=== PATIENT | female | born 1995 | race Caucasian/White ===

== ENCOUNTER 2023-12-24 15:45 | Inpatient (IN) ==
[2023-12-24] MEDS ORDERED: LIDOCAINE 1% LOCAL 20 ML VIAL INFIL PRN (16:10)
--- NOTE | 2023-12-24 16:13 | History & Physical Report ---
Date of Service December 24, 2023 Assessment & Plan (1) Supervision of normal intrauterine in multigravida: Plan: Admit to L&D. EFM/labs/IV access. Desires epidural. Anticipate . History of Present Illness Chief Complaint: labor Primary Care Provider: Todd Morales 28yo @ 39 08/18, came to L&D with regular contractions since 11am today. No rupture of membranes, no bleeding. + movement. Known GBS + Allergies Allergy/AdvReac Type Severity Reaction Status Date / Time No Known Allergies Allergy Verified 12/19/23 09:49 Home Medications Medication Instructions Recorded Confirmed Type vitamins-iron fumarate 27 1 tab PO DAILY 06/05/18 12/24/23 History mg iron-folic acid 0.8 mg tablet ( Vitamin) Patient History Medical History PROM (premature rupture of membranes) Surgical History H/O breast augmentation [place] teeth removed S/P tonsillectomy and adenoidectomy Family History (Updated 05/10/23 @ 10:52 by Grace Mccoy) Grandfather Hypertension Grandmother Endometrial cancer Social History (Updated 05/10/23 @ 10:53 by Grace Mccoy) Smoking Status: Never smoker Do You Dip or Chew Tobacco: No; Hx Alcohol Use: No Hx Substance Use: No Preferred Language: Gu[place]an Communication Ability: Effective Beliefs That Will Affect Care: None marital status: Single marital status details: Yayo (27) [phone] Current Living Situation: Significant Other Current Living Situation Comment: lives with FOB and daughter, 2 dogs current occupational status: employed current occupation: Realestate agent. Feels Safe at Home: Yes Assistive Devices: None Review of Systems All systems reviewed & are unremarkable except as noted in HPI & below Physical Exam Physical Exam: FHT Cat 1 Bloomer Q 2 SVE 7/100/-1, cephalic Constitutional: WD/WN, vitals as above Respiratory: normal respiratory effort, lungs clear to auscultation no respiratory distress Cardiovascular: Rate/Rhythm: regular rate and regular rhythm Gastrointestinal (Abdomen): Inspection/Auscultation: abdomen normal to inspection Percussion/Palpation: abdomen soft; abdomen nontender Gravid. No s/s chorio or abruption. Skin: no rashes, warm and dry Psychiatric: A+Ox3, euthymic affect Results & Data Vital Signs (Past 12 Hours) Vital Signs Pulse BP 12/24/23 15:54 99 H 121/72 Coding Level of Care Code None Diagnoses Supervision of normal intrauterine in multigravida Z34.80
[2023-12-24] MEDS: LACTATED RINGER'S 1,000 ML IV PRN (16:23)
[2023-12-24] MEDS ORDERED: ONDANSETRON INJ 2 MG/ML 2 ML VIAL IV PRN (16:28)
[2023-12-24] MEDS ORDERED: ePHEDrine sulfate 50 MG/ML AMP IV PRN (16:28)
[2023-12-24] MEDS ORDERED: BUPIVACAINE 0.25% PF 30 ML VIAL EPI PRN (16:28)
[2023-12-24] MEDS ORDERED: NALOXONE HCL 0.4 MG/1 ML VIAL/CARP IV PRN (16:28)
[2023-12-24] MEDS ORDERED: LIDOCAINE 2% MPF LOCAL 5 ML VIAL EPI PRN (16:28)
[2023-12-24] MEDS ORDERED: ROPIVACAINE 0.5% PF 5 MG/ML 20 ML VIAL EPI PRN (16:28)
[2023-12-24] MEDS ORDERED: NALOXONE HCL 1 MG in SODIUM CHLORIDE 0.9% 1,000 ML IV PRN (16:28)
[2023-12-24] MEDS ORDERED: NALBUPHINE HCL INJ 10 MG/ML AMP IV PRN (16:28)
[2023-12-24] MEDS ORDERED: fentaNYL citrate PF 100 MCG/2 ML VIAL EPI PRN (16:28)
[2023-12-24] MEDS ORDERED: diphenhydrAMINE 50 MG/ML VIAL IV PRN (16:28)
[2023-12-24] MEDS ORDERED: SODIUM CHLORIDE 0.9% PF INJ 10 ML VIAL EPI PRN (16:28)
--- NOTE | 2023-12-24 16:30 | Anesthesiology Consultation ---
Date of Service December 24, 2023 Assessment & Plan (1) Encounter for pre-operative examination: Chart Review Chart Review: Patient NOT seen in Pre Admission Testing and Acceptable Risk for Labor Epidural Consults Requested none History Height/Weight Height: 5 ft 5 in Weight: 85.275 kg Allergies Allergy/AdvReac Type Severity Reaction Status Date / Time No Known Allergies Allergy Verified 12/19/23 09:49 Medications Home Medications Medication Instructions Recorded Confirmed Last Taken vitamins-iron fumarate 27 1 tab PO DAILY 06/05/18 12/24/23 06/04/18 21:00 mg iron-folic acid 0.8 mg tablet ( Vitamin) Active Medications Generic Name Dose Route Start Last Admin Trade Name Freq PRN Reason Stop Dose Admin Lactated Ringer's 1,000 mls @ 125 mls/hr 12/24/23 16:10 12/24/23 16:23 Lr IV 12/26/23 16:09 999 mls/hr .Q8H PRN Administration L&D Protocol Protocol Past Medical History Medical History PROM (premature rupture of membranes) Exercise / Class Metabolic Activity II 4-5 Yardwork/Stairs/Walk up hill Past Family History Family History Grandfather Hypertension Grandmother Endometrial cancer Past Surgical History Surgical History H/O breast augmentation [place] teeth removed S/P tonsillectomy and adenoidectomy Past Anesthesia History No Hx of Anesthesia Complications and No Family Hx of Anesthesia Complications History of PONV No Hx of PONV and No Hx of Motion Sickness Social History Smoking Status: Never smoker Do You Dip or Chew Tobacco: No Hx Alcohol Use: No Hx Substance Use: No substance use type: does not use Physical Exam Vital Signs Last Vital Signs Temp 36.9 C 12/24/23 16:02 Pulse 88 12/24/23 16:46 Resp 20 12/24/23 16:02 BP 127/73 12/24/23 16:46 Pulse Ox 89 L 12/24/23 16:45 Testing Laboratory Results 12/24/23 16:15
[2023-12-24 16:31] LABS: Hemoglobin 11.2 g/dl (12.0-16.0); Mean Corpuscular Hemoglobin 27.1 pg (25.0-34.0); Mean Corpuscular Volume 84.7 fL (80.0-100.0); Mean Platelet Volume 10.8 fL (9.4-12.4); Platelet Count 230 K/uL (130-400); RDW Standard Deviation 47.8 fL (36.4-46.3); Red Blood Count 4.13 M/uL (4.20-5.40); White Blood Count 13.72 K/ul (4.8-10.8)
[2023-12-24] MEDS: fentaNYL citrate PF 100 MCG/2 ML VIAL EPI STA (16:43)
[2023-12-24] MEDS: BUPIVACAINE 0.25% PF 30 ML VIAL EPI STA (16:43)
[2023-12-24] MEDS: fentANYL 2 MCG/ML BUPIVacaine 0.125%-NSS 100ML BAG EPI PRN (16:44)
[2023-12-24] MEDS: LIDOCAINE 2%/EPINEPHRINE 1:200,000 20 ML PF EPI STA (16:47)
[2023-12-24] MEDS: fentaNYL citrate PF 100 MCG/2 ML VIAL ONE (16:49)
[2023-12-24] MEDS: ePHEDrine sulfate 50 MG/ML AMP ONE (16:49)
[2023-12-24] MEDS: BUPIVACAINE 0.25% PF 30 ML VIAL ONE (16:49)
[2023-12-24] MEDS: fentANYL 2 MCG/ML BUPIVacaine 0.125%-NSS 100ML BAG ONE (16:49)
[2023-12-24] MEDS: LIDOCAINE 2%/EPINEPHRINE 1:200,000 20 ML PF ONE (16:50)
[2023-12-24] MEDS: SODIUM CHLORIDE 0.9% PF INJ 10 ML VIAL ONE (16:50)
[2023-12-24] MEDS: PENICILLIN GK 6 MU in DEXTROSE 5% 250 ML IV STA (16:52)
[2023-12-24] MEDS: SODIUM CHLORIDE 0.9% PF INJ 10 ML VIAL EPI STA (18:10)
[2023-12-24] MEDS ORDERED: PENICILLIN GK 3 MU in DEXTROSE 5% 100 ML IV PRN (19:10)
[2023-12-24] MEDS: OXYTOCIN 30 UNITS/NSS 30 UNITS/500 ML BAG IV PRN (20:14)
--- NOTE | 2023-12-24 20:25 | Delivery Summary ---
Vaginal Delivery Summary Date of Service December 24, 2023 Vaginal Delivery Summary [facility] Vaginal Delivery Summary: Pre-delivery diagnoses: 28yo @ 39 6/7, GBS+, spontaneous labor Post-delivery diagnoses: same Procedure: spontaneous vaginal delivery Surgeon: Wendi Syed DO Complications: none Findings: Viable female . Apgars: 8/9. Weight pending, please see nursery records. Estimated Q blood loss: 102cc Description of delivery: The patient progressed to complete with epidural anesthesia. She then began to push. She spontaneously vaginally delivered a viable from the cephalic presentation. The head delivered in NAVIN position. The anterior shoulder delivered, followed by the posterior shoulder, followed by the body. The baby was placed on mother's abdomen and a spontaneous cry was heard. Delayed cord clamping was employed, and the cord was doubly clamped and cut. Cord blood was obtained. The placenta was delivered spontaneously intact with a 3-vessel cord. The uterus and vagina were swept of clots and debris. IV pitocin was given. The uterus became firm. The cervix, vagina, and perineum were inspected and no lacerations were noted. There was a 1cm inclusion cyst at perineum - she declined removal at the time of delivery. Excellent hemostasis was observed. The mother and baby are recovering in stable and good condition in the room. Sponge and instrument counts were correct x 2. DO [facility] Delivery Charge Vaginal Delivery Codes: 34590 global code for the antepartum, delivery, and post- Delivery Type Details: [facility]
[2023-12-24] MEDS ORDERED: ACETAMINOPHEN 325 MG TAB PO PRN (20:49)
[2023-12-24] MEDS ORDERED: bisacodyL 10 MG SUPP PR PRN (20:49)
[2023-12-24] MEDS ORDERED: oxyCODONE/ACETAMINOPHEN 5mg/325mg TAB PO PRN (20:49)
[2023-12-24] MEDS ORDERED: HYDROCORTISONE ACETATE 25 MG SUPP PR PRN (20:49)
[2023-12-24] MEDS ORDERED: BENZOCAINE 20% SPRY 85 APPLN/85 GM CAN EXT PRN (20:49)
[2023-12-24] MEDS ORDERED: OXYTOCIN 30 UNITS/NSS 30 UNITS/500 ML BAG IV PRN (20:49)
[2023-12-25] MEDS: IBUPROFEN 600 MG TAB PO PRN (06:23)
[2023-12-25 07:10] LABS: Hematocrit (blood only) 31.7 % (37.0-47.0); Hemoglobin 10.2 g/dl (12.0-16.0)
--- NOTE | 2023-12-25 08:02 | Anesthesia Procedure Note ---
Date of Service December 25, 2023 Anesthesia Post Epidural Note Vital Signs Vital Signs: Temp Pulse Resp BP Pulse Ox O2 Del Method 37.4 C 81 14 113/68 100 Room Air 12/25/23 03:14 12/25/23 03:14 12/25/23 03:14 12/25/23 03:14 12/24/23 20:53 12/25/23 03:14 Notes Mental Status: alert / awake / arousable and participated in evaluation Patient Amnestic to Procedure: No Nausea / Vomiting: adequately controlled Pain: adequately controlled Airway Patency, RR, SpO2: stable & adequate BP & HR: stable & adequate Hydration State: stable & adequate Neuraxial Anesthesia: was administered and sensory block resolved Anesthetic Complications: no major complications apparent and Pt Satisfied with anesthetic care Epidural: Removed without complications and With tip intact
[2023-12-25] MEDS: PRENATAL VITAMIN 1 TAB PO SCH (08:10)
[2023-12-25] MEDS: DOCUSATE SODIUM 100 MG CAP PO SCH (08:10)
--- NOTE | 2023-12-25 09:06 | Obstetrical Progress Note ---
Date of Service December 25, 2023 Assessment & Plan (1) Supervision of normal intrauterine in multigravida: PPD#1 doing well. Desires DC home. Reviewed instructions, will follow up in office 6w. Subjective Ambulation: ambulating normally Voiding: no voiding problems Diet Tolerance:: regular diet Lochia:: Moderate Review of Systems All systems reviewed & are unremarkable except as noted in HPI & below Physical Exam Constitutional WD/WN, vitals as above no acute distress Respiratory normal respiratory effort Cardiovascular Rate/Rhythm: regular rate and regular rhythm Gastrointestinal (Abdomen) Inspection/Auscultation: abdomen normal to inspection; abdomen not distended Percussion/Palpation: abdomen soft Genitourinary OB Exam Abdomen: + fundal height Fundus: + firm; not tender Results & Data Vital Signs (Past 12 Hours) Vital Signs Temp Pulse Pulse Resp BP BP O2 Del Method 12/25/23 08:00 37.0 C 71 16 118/77 Room Air 12/25/23 03:14 37.4 C 81 14 113/68 Room Air 12/24/23 23:03 37.1 C 72 16 120/73 Room Air 12/24/23 22:23 36.8 C 18 12/24/23 22:23 95 H 12/24/23 22:23 144/82 H 12/24/23 22:21 96 H 12/24/23 22:21 151/75 H 12/24/23 22:06 88 12/24/23 22:06 134/76 12/24/23 21:51 18 12/24/23 21:51 85 12/24/23 21:51 123/67 12/24/23 21:36 96 H 12/24/23 21:36 145/80 H 12/24/23 21:21 18 12/24/23 21:21 80 12/24/23 21:21 135/74 12/24/23 21:06 18 12/24/23 21:06 76 12/24/23 21:06 129/71
[2023-12-25] MEDS: DIPHTHER/TETAN/PERTUS Vaccine (Tdap, Adol/Adult) 0.5mL IM ONE (16:36)
[2023-12-25] MEDS: bisacodyL 5 MG TABEC PO SCH (19:10)
[2023-12-25 19:53] VITALS: BP 119/79; PULSE 88; RESP 20; TEMP 98.6; O2SAT 97
== END 2023-12-25 20:45 | disposition home or self-care (01) | DRG 807 ==
LOC: OPB 15:45 → 4S1 15:47 → 4E2 22:54